=== PATIENT | female | born 1980 | race Two or more races ===

== ENCOUNTER 2017-06-15 10:58 | Emergency (ER) | payer OTHER ==
[~2017-06-15] VITALS: Ht 162.6 cm; Wt 96.0 kg
[2017-06-15] MEDS ORDERED: KETOROLAC 30 MG/1 ML ONE (13:25)
[2017-06-15] MEDS ORDERED: KETOROLAC 30 MG/1 ML IVPush ONE (13:30)
[2017-06-15] MEDS ORDERED: SODIUM CHLORIDE FLUSH 10ML SYR IVF ONE (13:30)
[2017-06-15] MEDS ORDERED: SODIUM CHLORIDE 0.9% 1,000ML IVBOLUS ONE (13:30)
[2017-06-15 13:50] LABS: HEMATOCRIT 41.9 % (34.6-47.8); WHITE BLOOD COUNT 5.6 x10^3/uL (3.4-10)
[2017-06-15 14:00] LABS: ASPARTATE AMINO TRANSFERASE 19 U/L (15-37); BLOOD UREA NITROGEN 14 mg/dL (7-18)
[2017-06-15 14:12] LABS: IS PT STATUS REG ER OR PRE ER? YES
[2017-06-15 15:17] VITALS: BP 123/74
== END 2017-06-15 15:19 | disposition home or self-care (01) ==
LOC: ED 15:07
DX: R07.89 Other chest pain (principal)
CPT/HCPCS: 36415; 71010; 80053; 83690; 84484; 85025; 85379; 93005; 96361; 96374; 99285; J1885; J7030